=== PATIENT | male | born 1980 | race Caucasian/White ===

== ENCOUNTER 2018-10-26 18:13 | Emergency (ER) | payer SELFPAY ==
--- NOTE | 2018-10-26 18:20 | PDOC ---
Rapid Medical Evaluation Time Seen by Provider: 10/26/18 18:19 Medical Evaluation: Allergies Allergy/AdvReac Type Severity Reaction Status Date / Time No Known Allergies Allergy Verified 04/30/15 17:29 10/26/18 18:19 I have performed a brief in-person evaluation of this patient. The patient presents with a chief complaint of: penile rash- started after condom broke while having sex Pertinent physical exam findings: deferred I have ordered the following: STD testing The patient will proceed to the ED for further evaluation. Discharge Disposition - Diagnosis Concern about STD in male without diagnosis - Referrals - Patient Instructions - Post Discharge Activity
[2018-10-26 18:22] VITALS: BP 121/86; PULSE 78; TEMP 97.9; BMI 26.6
--- NOTE | 2018-10-26 18:39 | PDOC ---
History of Present Illness - General Chief Complaint: Rash Stated Complaint: RASH Time Seen by Provider: 10/26/18 18:19 - History of Present Illness Initial Comments: 10/26/18 18:38 38-year-old male without comorbidities presents for evaluation of unprotected sex with a stranger with a broken condom 2 days ago he has no symptoms mild ceferino -genitalia itching no discharge or fevers Past History - Past Medical History Allergies/Adverse Reactions: Allergies Allergy/AdvReac Type Severity Reaction Status Date / Time ceftriaxone [From Rocephin] Allergy Intermediate Rash Verified 10/26/18 18:24 Home Medications: Ambulatory Orders Doxycycline Hyclate 100 mg PO BID 7 Days #14 tablet 10/26/18 COPD: No - Immunization History Immunization Up to Date: Yes - Suicide/Smoking/Psychosocial Hx Smoking History: Never smoked Hx Alcohol Use: No Drug/Substance Use Hx: No Review of Systems - Review of Systems Integumentary: Yes: Pruritus *Physical Exam - Vital Signs Last Vital Signs Temp Pulse Resp BP Pulse Ox 97.9 F 78 18 121/86 98 10/26/18 18:19 10/26/18 18:19 10/26/18 18:19 10/26/18 18:19 10/26/18 18:19 - Physical Exam Comments: 10/26/18 18:38 HEAD: NC/AT EYES: Conjuntiva clear External genitalia grossly normal. There are no rashes or discharge MS: Full ROM in all joints without edema NEUROLOGIC: No gross sensory or motor deficits, NVID SKIN: Normal color and temperature no lesions or rashes Medical Decision Making - Medical Decision Making 10/26/18 18:39 Patient is ALLERGIC to ceftriaxone I will treat him with doxycycline twice a day for 7 days. He will await HIV testing results. *DC/Admit/Observation/Transfer Diagnosis at time of Disposition: Concern about STD in male without diagnosis - Discharge Dispostion Disposition: HOME Condition at time of disposition: Stable Decision to Admit order: No - Prescriptions Prescriptions: Doxycycline Hyclate 100 mg PO BID 7 Days #14 tablet - Referrals Referrals: [facility] [Provider Group] - Patient Instructions Printed Discharge Instructions: How to Detect and Treat STDs, Chlamydia: The Silent STD, Facts About Sexually Transmitted Infections Additional Instructions: Please take the antibiotics as directed. Return to the emergency room for worsening symptoms. Her HIV test was negative today. Follow-up with the [facility] for further evaluation and treatment options. - Post Discharge Activity
== END 2018-10-26 20:41 | disposition home or self-care (01) ==
LOC: JERFT 18:13
DX: Z11.3 Encounter for screening for infections with a predominantly sexual mode of transmission (principal)
CPT/HCPCS: 86593; 87389; 87491; 87591; 87661; 99281-25

== ENCOUNTER 2019-02-22 07:35 | Emergency (ER) | payer SELFPAY ==
[2019-02-22 07:56] VITALS: BP 121/76; PULSE 58; TEMP 97.6; BMI 26.6
[2019-02-22] MEDS ORDERED: MAG HYDROX/AL HYDROX/SIMETH 30 ML UNIT-DOSE CUP PO ONE (08:22)
[2019-02-22] MEDS ORDERED: RANITIDINE HCL 150 MG TABLET (FP) PO ONE (08:22)
--- NOTE | 2019-02-22 08:23 | PDOC ---
*Physical Exam - Vital Signs Last Vital Signs Temp Pulse Resp BP Pulse Ox 97.6 F 58 L 16 121/76 99 02/22/19 07:38 02/22/19 07:38 02/22/19 07:38 02/22/19 07:38 02/22/19 07:38 ED Treatment Course - LABORATORY CBC & Chemistry Diagram: 02/22/19 08:50 02/22/19 08:50 Medical Decision Making - Medical Decision Making 02/22/19 08:22 38 yo M p/w epigastric pain, not necessarily associated with food intake Present x 1 week intermitently, pain has progressively worsened Pt seen by Midlevel Provider under my direct supervision Pt interviewed and examined Ancillary studies reviewed - Labs WNL Pt improved with symptomatic treatment D/C home Follow up with PMD/GI I agree with plan as outlined by Midlevel Provider 02/22/19 08:25 *DC/Admit/Observation/Transfer Diagnosis at time of Disposition: Epigastric pain - Discharge Dispostion Disposition: HOME Condition at time of disposition: Stable - Prescriptions Prescriptions: Famotidine [Pepcid] 20 mg PO DAILY #30 tablet - Referrals Referrals: Wendie Prado MD [Staff Physician] - 2 Days - Patient Instructions Printed Discharge Instructions: DI for Gastritis, DI for Epigastric Pain Additional Instructions: Thank you for choosing [facility]. It was a pleasure taking care of you. Your labs were unremarkable Possibly your symptoms are related to gastritis Avoid alcohol and NSAIDS (medications like Motrin, Alleve, Naprosyn) Take Pepcid Follow-up with your doctor and the GI doctor for further evaluation Return to the Emergency Department if your symptoms worsen or persist, you have fever, shortness of breath, chest pain, severe abdominal pain, vomiting or other concerning symptoms. - Post Discharge Activity
--- NOTE | 2019-02-22 08:30 | PDOC ---
History of Present Illness - General Chief Complaint: Pain, Acute Stated Complaint: ABD PAIN Time Seen by Provider: 02/22/19 08:12 History Source: Patient Exam Limitations: No Limitations Past History - Past Medical History Allergies/Adverse Reactions: Allergies Allergy/AdvReac Type Severity Reaction Status Date / Time ceftriaxone [From Rocephin] Allergy Intermediate Rash Verified 02/22/19 07:41 Home Medications: Ambulatory Orders Famotidine [Pepcid] 20 mg PO DAILY #30 tablet 02/22/19 COPD: No - Immunization History Immunization Up to Date: Yes - Suicide/Smoking/Psychosocial Hx Smoking History: Never smoked Hx Alcohol Use: Yes (ONCE A MONTH) Drug/Substance Use Hx: No *Physical Exam - Vital Signs Last Vital Signs Temp Pulse Resp BP Pulse Ox 97.6 F 58 L 16 121/76 99 02/22/19 07:38 02/22/19 07:38 02/22/19 07:38 02/22/19 07:38 02/22/19 07:38 - Physical Exam General Appearance: No: Apparent Distress Respiratory/Chest: positive: Lungs Clear, Normal Breath Sounds. negative: Respiratory Distress Cardiovascular: positive: Regular Rhythm, Regular Rate, S1, S2. negative: Murmur Gastrointestinal/Abdominal: positive: Tender (epigastric region), Soft. negative: Distended, Guarding, Rebound, Hernia, Mass Integumentary: positive: Normal Color Neurologic: positive: Alert, Normal Mood/Affect ED Treatment Course - LABORATORY CBC & Chemistry Diagram: 02/22/19 08:50 02/22/19 08:50 Medical Decision Making - Medical Decision Making 38 y/o M with no sig pmh presents with epigastric pain (cramping/burning like in nature) x 1 week, gradually getting worse. Denies fever, sob, cp, n/v/d, constipation, urinary complaints. Pain is not necessarily associated with food intake. Denies having this type of pain before. Denies prior surgeries. Denies smoking. Drinks alcohol socially (around 1x/week). Denies drug use. Denies FH of CAD or PA Possible gastritis; less suspicious for pancreatitis, cholecystitis Also consider ACS given age, but no significant risk factors Plan: Labs, EKG, Zantac, Maalox, reassess 02/22/19 08:27 EKG: Sinus silviano at 54 bpm, incomplete RBBB, no ST-T changes Labs unremarkable Will refer to GI for further evaluation 02/22/19 09:40 *DC/Admit/Observation/Transfer Diagnosis at time of Disposition: Epigastric pain - Discharge Dispostion Disposition: HOME Condition at time of disposition: Stable Decision to Admit order: No - Prescriptions Prescriptions: Famotidine [Pepcid] 20 mg PO DAILY #30 tablet - Referrals Referrals: Wendie Prado MD [Staff Physician] - 2 Days - Patient Instructions Printed Discharge Instructions: DI for Epigastric Pain, DI for Gastritis Additional Instructions: Thank you for choosing [facility]. It was a pleasure taking care of you. Your labs were unremarkable Possibly your symptoms are related to gastritis Avoid alcohol and NSAIDS (medications like Motrin, Alleve, Naprosyn) Take Pepcid Follow-up with your doctor and the GI doctor for further evaluation Return to the Emergency Department if your symptoms worsen or persist, you have fever, shortness of breath, chest pain, severe abdominal pain, vomiting or other concerning symptoms. - Post Discharge Activity
[2019-02-22] MEDS ORDERED: MAG HYDROX/AL HYDROX/SIMETH 30 ML UNIT-DOSE CUP ONE (08:39)
[2019-02-22] MEDS ORDERED: RANITIDINE HCL 150 MG TABLET (FP) ONE (08:39)
[2019-02-22 09:08] LABS: BASO % 0.6 % (0-2.0); EOS % 1.7 % (0-4.5); HEMATOCRIT 49.4 % (35.4-49); HEMOGLOBIN 16.4 GM/dL (11.7-16.9); LYMPH % 39.9 % (8-40); MCH 31.7 pg (25.7-33.7); MCHC 33.3 g/dl (32.0-35.9); MEAN CELL VOLUME 95.3 fl (80-96); MEAN PLT VOLUME 9.1 fl (7.5-11.1); MONO % 6.6 % (3.8-10.2); NEUT % 51.2 % (42.8-82.8); PLATELET COUNT 152 K/MM3 (134-434); RBC 5.18 M/mm3 (4.00-5.60); RDW 13.5 % (11.9-15.9); WHITE BLOOD COUNT 3.8 K/mm3 (4.0-10.0)
[2019-02-22] MEDS ORDERED: ACETAMINOPHEN 325 MG TABLET (FP) PO ONE (09:18)
[2019-02-22 09:30] LABS: ALBUMIN 4.2 g/dl (3.4-5.0); BILIRUBIN,TOTAL 0.7 mg/dL (0.2-1); BLOOD UREA NITROGEN 14.6 mg/dL (7-18); CALCIUM 9.5 mg/dL (8.5-10.1); CREATININE 0.9 mg/dL (0.55-1.3); POTASSIUM 4.7 mmol/L (3.5-5.1); TOT PROT 7.2 g/dl (6.4-8.2)
--- NOTE | 2019-02-22 12:41 | EKG ---
Test Reason : Blood Pressure : / mmHG Vent. Rate : 054 BPM Atrial Rate : 054 BPM P-R Int : 148 ms QRS Dur : 096 ms QT Int : 396 ms P-R-T Axes : 068 020 036 degrees QTc Int : 375 ms SINUS BRADYCARDIA INCOMPLETE RIGHT BUNDLE BRANCH BLOCK BORDERLINE ECG NO PREVIOUS ECGS AVAILABLE Confirmed by Julian Moreau MD ([id number]) on 02/22/2019 12:41:07 PM Referred By: Confirmed By:Julian Moreau MD
== END 2019-02-22 09:43 | disposition home or self-care (01) ==
LOC: JER 07:35
DX: R10.13 Epigastric pain (principal)
CPT/HCPCS: 36415; 80053; 83690; 84484; 85025; 93005; 93010; 99284-25

== ENCOUNTER 2019-06-10 06:53 | Emergency (ER) | payer SELFPAY ==
[2019-06-10 07:15] VITALS: BP 119/73; PULSE 72; TEMP 97.8; BMI 26.6
--- NOTE | 2019-06-10 08:15 | PDOC ---
Attending Attestation - Resident Resident Name: Magdy Chavarria - ED Attending Attestation I have performed the following: I have examined & evaluated the patient, The case was reviewed & discussed with the resident, I agree w/resident's findings & plan, Exceptions are as noted - HPI HPI: 06/10/19 12:09 39 years old presents with penile discomfort and burning mild suprapubic discomfort no fever no chills currently sexually active to partners in the last several months does not always use protection no previous history of STIs - Physicial Exam PE: 06/10/19 12:09 Vitals: Triage Vital signs reviewed General Appearance: No acute distress, well nourished well developed, Cardiac: Regular rate and rhythym, no murmurs, no rubs, no gallops, Lungs: Clear to auscultation bilateral, good air movement bilaterally, Abdomen: Soft, non distended, normal bowel sounds, non tender to palpation Genitourinary: Rectal: Exam deferred Extremities: Full range of motion to all extremities, no cyanosis, clubbing, or edema Skin: Warm and dry, no rashes or lesions, no rash, no petechiae Psych: Normal mood, normal affect - Medical Decision Making 06/10/19 12:17 HIV negative patient treated for presumed STI given ceftriaxone allergy azithromycin given culture sent for follow-up Findings, need for follow-up and strict return instructions discussed with patient. Discharge - Discharge Information Problems reviewed: Yes Clinical Impression/Diagnosis: Penis pain, Concern about STD in male without diagnosis Condition: Stable Disposition: HOME - Follow up/Referral Referrals: [facility] [place] [place] [Provider Group] Denton Galeana MD [Staff Physician] - CallBack Reminder: GC/C/T Amp - Patient Discharge Instructions Patient Printed Discharge Instructions: How to Detect and Treat STDs, DI for Dysuria -- Adult Additional Instructions: You were seen today for burning in the middle of your penis. Your first urine test was normal. Your HIV test was negative. The last urine test will take several days to complete. The hospital will call you if the result is positive. 1. As discussed, a screening test for the HIV virus was performed today. Your HIV test is Negative (normal). 2. As discussed, if you engaged in high risk-behavior in the three (3) months prior to this test, you could still potentially be at risk and you will need to be re-tested. 3. As discussed, avoid any high risk behavior (such as unprotected sex or needle-sharing) in the future to minimize the chances of ramandeep HIV. You were given an antibiotic today called Azithromycin. You need to follow up with your primary care doctor in the next several days to make sure you are healing. The results of todays visit are included in this packet. Take it with you so your doctor can review it. I placed a referral for you to see the resident clinic. I also placed a referral for you to see a urologist, Dr. Galeana. You will need to call to make an appointment. Print Language: TAJIK - Post Discharge Activity Work/Back to School Note: Back to Work
--- NOTE | 2019-06-10 08:18 | PDOC ---
History of Present Illness - General Chief Complaint: Pain, Acute Stated Complaint: ABD PAIN Time Seen by Provider: 06/10/19 07:25 History Source: Patient, Old Records Exam Limitations: No Limitations - History of Present Illness Initial Comments: HPI: 39 y/o male presenting to [facility] ER complaining of burning to the middle of his penis with suprapubic tenderness since Thursday. Described as intermittent. Denies association with voiding, testicular pain, hematuria, or penile discharge. Had unprotected sex last Thursday with a known female partner. Endorses two female sexual partners in the last six months. Denies known h/o STI (personal or partners). Requested HIV blood testing. Medical Hx: - Denies Surgical Hx: - Denies Review of Systems: In addition to that documented in the HPI above, the additional ROS was obtained : Constitutional- Denies fevers or chills ENMT- Denies sore throat CV- Denies chest pain Resp- Denies SOB GI- Endorses three episodes of diarrhea since yesterday; improved after taking Pepto Bismol. Denies vomiting. - Per HPI Physical Examination: Vital signs and nursing notes reviewed. Constitutional- Well-developed, well-nourished adult male in no acute distress or obvious discomfort. Found semi-fowlers on hopsital bed. Answered all questions appropriately and completely. Head- Normocephalic. No obvious external signs of trauma. Cardiovascular / Chest- Regular rate and regular rhythm. No murmur, rubs, clicks , or gallops. Peripheral pulses- radial pulses full. Respiratory- Breathing unlabored. Equal chest rise and fall. Clear to auscultation bilaterally. No stridor, no wheezing, no rhonchi. Gastrointestinal- abdomen is mildly tender in suprapubic region without grimace , rebound or guarding. Globally, the abdomen is soft and non-distended. No hepatosplenemegaly. No pulsatile masses. No overlying skin lesions or obvious signs of trauma. Male : Genital exam revealed normally developed male genitalia. Circumcised penis. No scrotal mass or tenderness, no hernias or inguinal lymphadenopathy. No perineal or perianal abnormalities are seen. No genital lesions or urethral discharge. ED Med Student chaperoned exam. Neuro- Alert and oriented x4. Moving all four extremities spontaneously. Skin- Warm, dry, and intact. Psych- Affect- appropriate. Mood- normal. Speech was non-labored, non- pressured. MDM: 39 y/o male presenting with burning to middle of penis with systemic signs of infection. Afebrile. Vitals unremarkable for hypotension or tachycardia. Physical exam as described above. UA unremarkable for nitrites, leukocyte esterase, or pyuria. Low suspicion for acute cystitis. GC/C/T amplification pending. Call back requested placed in [facility]. Will treat presumptively for STI with Azithromycin monotherapy as pt has an allergy to Ceftriaxone. HIV results negative. Discussed laboratory results with pt. Answered all questions. Provided return precautions. pt expressed verbal understanding and agreement with plan to discharge home with outpatient follow up. Provided copies of todays results. Placed referral for Urology and [facility] for f/u. Magdy Chavarria M.D., PGY2 Emergency Medicine Resident Past History - Past Medical History Allergies/Adverse Reactions: Allergies Allergy/AdvReac Type Severity Reaction Status Date / Time ceftriaxone [From Rocephin] Allergy Intermediate Rash Verified 06/10/19 07:10 COPD: No - Immunization History Immunization Up to Date: Yes - Psycho Social/Smoking Cessation Hx Smoking History: Never smoked Hx Alcohol Use: No Drug/Substance Use Hx: No *Physical Exam - Vital Signs Last Vital Signs Temp Pulse Resp BP Pulse Ox 97.8 F 72 16 119/73 99 06/10/19 07:11 06/10/19 07:11 06/10/19 07:11 06/10/19 07:11 06/10/19 07:11 Discharge - Discharge Information Problems reviewed: Yes Clinical Impression/Diagnosis: Penis pain, Concern about STD in male without diagnosis Condition: Stable Disposition: HOME - Admission No - Follow up/Referral Referrals: [facility] [place] [facility] at [place] [Provider Group] Denton Galeana MD [Staff Physician] - CallBack Reminder: GC/C/T Amp - Patient Discharge Instructions Patient Printed Discharge Instructions: How to Detect and Treat STDs, DI for Dysuria -- Adult Additional Instructions: You were seen today for burning in the middle of your penis. Your first urine test was normal. Your HIV test was negative. The last urine test will take several days to complete. The hospital will call you if the result is positive. 1. As discussed, a screening test for the HIV virus was performed today. Your HIV test is Negative (normal). 2. As discussed, if you engaged in high risk-behavior in the three (3) months prior to this test, you could still potentially be at risk and you will need to be re-tested. 3. As discussed, avoid any high risk behavior (such as unprotected sex or needle-sharing) in the future to minimize the chances of ramandeep HIV. You were given an antibiotic today called Azithromycin. You need to follow up with your primary care doctor in the next several days to make sure you are healing. The results of todays visit are included in this packet. Take it with you so your doctor can review it. I placed a referral for you to see the resident clinic. I also placed a referral for you to see a urologist, Dr. Galeana. You will need to call to make an appointment. Print Language: NIGERIAN - Post Discharge Activity Work/Back to School Note: Back to Work
[2019-06-10 08:20] LABS: URINE APPEARANCE CLEAR; URINE BILIRUBIN NEGATIVE (NEGATIVE); URINE COLOR YELLOW; URINE GLUCOSE (UA) NEGATIVE (NEGATIVE); URINE KETONE NEGATIVE (NEGATIVE); URINE LEUK ESTERASE NEGATIVE (NEGATIVE); URINE NITRITE NEGATIVE (NEGATIVE); URINE PROTEIN NEGATIVE (NEGATIVE); URINE UROBILINOGEN 0.2 mg/dL (0.2-1.0)
[2019-06-10] MEDS ORDERED: AZITHROMYCIN 500 MG TABLET PO ONE (08:57)
[2019-06-10] MEDS ORDERED: AZITHROMYCIN 500 MG TABLET ONE (09:04)
== END 2019-06-10 11:43 | disposition home or self-care (01) ==
LOC: JER 06:53
DX: Z11.3 Encounter for screening for infections with a predominantly sexual mode of transmission (principal); N48.89 Other specified disorders of penis; Z88.1 Allergy status to other antibiotic agents
CPT/HCPCS: 36415; 81003; 87086; 87389; 87491; 87591; 87661; 99282-25